=== PATIENT | female | born 1970 | race Caucasian/White ===

== ENCOUNTER 2017-09-26 03:51 | Emergency (ER) | payer OTHER ==
[~2017-09-26] VITALS: Ht 162.6 cm; Wt 68.2 kg
[~2017-09-26 03:51] MED LIST: FLAGYL500 MG PO; IBU800 M1 PO; LEVAQUIN 5500 MG/TA1 PO; PREMARIN 0.60.625 M1 PO; PREMARIN 1.251.25 MG PO; ROXICODONE 55 MG/TAB PO; ZOFRAN 4MG T4 MG/TAB PO
[2017-09-26 03:54] VITALS: TEMP 100.1
[2017-09-26] MEDS ORDERED: CLIMARA 0.1 PATCH.W1 TD (03:59)
[2017-09-26] MEDS ORDERED: ORENCIA250 MG IV (04:00)
[2017-09-26 04:47] LABS: BASO % 0.2 % (0.0-2.0); EOS # 0.1 (0.0-0.7); EOS % 0.4 % (0-4.0); GRAN # 11.5 (1.4-6.5); GRAN % 84.4 % (42.2-75.2); HEMATOCRIT 38.6 % (37.0-47.0); HEMOGLOBIN 13.3 g/dl (12.5-16.0); LYMPH % 7.6 % (20.0-51.0); MEAN CELL VOLUME 92 fl (80.0-100.0); MEAN CORPUSCULAR HEMOGLOBIN 32 pg (27.0-31.0); MEAN CORPUSCULAR HGB CONC 35 g/dl (33.0-37.0); MEAN PLATELET VOLUME 9.8 fl (7.4-10.4); MONO % 7.1 % (1.7-9.3); PLATELET COUNT 225 K/mm3 (130-400); RED BLOOD COUNT 4.18 M/mm3 (4.10-5.30); WHITE BLOOD COUNT 13.6 K/mm3 (4.8-10.8)
[2017-09-26 04:56] LABS: COLLECTION METHOD CLEAN CATCH
[2017-09-26 04:59] LABS: ADJUSTED CALCIUM 9.4 mg/dL (8.4-10.2); ALBUMIN 4.2 gm/dL (3.5-5.0); CALCIUM 9.6 mg/dL (8.4-10.2); CREATININE, serum 0.67 mg/dL (0.52-1.25); POTASSIUM 3.9 mmol/L (3.4-5.0); TOTAL PROTEIN 7.1 gm/dL (6.4-8.2)
[2017-09-26 05:02] LABS: MUCOUS Present /lpf; PH 5 (5-8); URINE APPEARANCE Hazy; URINE BACTERIA None Seen /hpf; URINE BILIRUBIN Negative (NEGATIVE); URINE BLOOD 2+ (NEGATIVE); URINE COLOR Yellow; URINE GLUCOSE Negative (NEGATIVE); URINE KETONE 2+ (NEGATIVE); URINE LEUKOCYTE ESTERASE Negative (NEGATIVE); URINE PROTEIN(semi-quant) Negative (NEGATIVE); URINE RBC 20-50 /hpf; URINE UROBILINOGEN Negative (NEGATIVE); URINE WBC 0-2 /hpf
[2017-09-26] MEDS ORDERED: CIPRO 500MG TA500 MG PO (05:33)
[2017-09-26] MEDS ORDERED: NORCO 325 MG-51 TAB PO (05:33)
[2017-09-26] MEDS ORDERED: FLAGYL500 MG PO (05:33)
[2017-09-26] MEDS ORDERED: ZOFRAN ODT4 MG PO (05:33)
[2017-09-26 06:03] VITALS: BP 143/78; PULSE 75
== END 2017-09-26 06:06 | disposition home or self-care (01) ==
LOC: COL.ER 03:51
PROVIDERS: Emergency Medicine
DX: K57.32 Diverticulitis of large intestine without perforation or abscess without bleeding (principal)
CPT/HCPCS: J1170; J2405; J7030; Q9967

== ENCOUNTER → 2017-12-12 | Outpatient (CLI) | payer OTHER ==
[~2017-12-12] MED LIST changes: +CIPRO 500MG TA500 MG PO; +CLIMARA 0.1 PATCH.W1 TD; +NORCO 325 MG-51 TAB PO; +ORENCIA250 MG IV; +ZOFRAN ODT4 MG PO
== END ==
LOC: MC.RAD 11:05
DX: Z12.31 Encounter for screening mammogram for malignant neoplasm of breast (principal)

== ENCOUNTER 2018-03-07 11:31 | Day surgery (SDC) | payer OTHER ==
[~2018-03-07] VITALS: Ht 162.6 cm; Wt 69.0 kg
[2018-03-07] MEDS ORDERED: ADVIL200 MG PO (12:06)
[2018-03-07 12:07] VITALS: BP 147/90; PULSE 61; TEMP 98.5
[2018-03-07 13:58] VITALS: BP 145/86; PULSE 67; TEMP 98.2
[2018-03-07 14:13] VITALS: BP 151/83; PULSE 71
[2018-03-07 14:28] VITALS: BP 137/82; PULSE 63
[2018-03-07] MEDS ORDERED: BENEFIBER PO (14:31)
== END 2018-03-07 14:55 | disposition home or self-care (01) ==
LOC: SDCO 11:31
DX: K57.30 Diverticulosis of large intestine without perforation or abscess without bleeding (principal); K64.0 First degree hemorrhoids; M06.9 Rheumatoid arthritis, unspecified; Z79.52 Long term (current) use of systemic steroids; Z80.0 Family history of malignant neoplasm of digestive organs
CPT/HCPCS: OP; J2250; J3010; J7030

== ENCOUNTER → 2020-01-07 | Outpatient (CLI) | payer OTHER ==
[~2020-01-07] MED LIST changes: +ADVIL200 MG PO; +BENEFIBER PO
== END ==
LOC: MC.RAD 09:45
DX: Z12.31 Encounter for screening mammogram for malignant neoplasm of breast (principal)

== ENCOUNTER 2020-10-06 14:30 | Outpatient (RCR) | payer OTHER | END 2020-10-15 14:29 | disposition home or self-care (01) | LOC: WSOT 14:30 | DX: S61.303D Unspecified open wound of left middle finger with damage to nail, subsequent encounter (principal); S62.623D Displaced fracture of middle phalanx of left middle finger, subsequent encounter for fracture with routine healing; E66.3 Overweight; I10 Essential (primary) hypertension; Z68.29 Body mass index [BMI] 29.0-29.9, adult ==

== ENCOUNTER → 2021-01-30 | Outpatient (CLI) | payer OTHER | LOC: MC.RAD 10:24 | DX: Z12.31 Encounter for screening mammogram for malignant neoplasm of breast (principal) ==

== ENCOUNTER → 2022-02-16 | Outpatient (CLI) | payer OTHER | LOC: COL.RAD 09:54 | DX: M54.50 Low back pain, unspecified (principal); G89.29 Other chronic pain ==

== ENCOUNTER → 2022-03-01 | Outpatient (CLI) | payer OTHER | LOC: MC.RAD 09:47 | DX: Z12.31 Encounter for screening mammogram for malignant neoplasm of breast (principal) ==

== ENCOUNTER 2024-04-18 14:00 | Outpatient (RCR) | payer OTHER | END 2024-04-22 | disposition home or self-care (01) | LOC: WSOT | DX: M79.645 Pain in left finger(s) (principal); Z98.890 Other specified postprocedural states ==